=== PATIENT | female | born 1985 | race Caucasian/White ===

== ENCOUNTER → 2016-08-29 | Outpatient (CLI) | payer OTHER ==
[2016-08-29 17:08] LABS: Basophils % (A) 1 %; CH 30.3; CHCM 33.4; Eosinophils # (A) 0.1 k/uL (0-0.7); Eosinophils % (A) 1 %; HCT 40.1 % (34.0-46.0); HDW 2.44; Luc # (Auto) 0.17; Luc % (Auto) 3; Lymphocytes % (A) 34 %; MCH 29.6 pg (25.0-35.0); MCHC 32.5 g/dL (31.0-37.0); MCV 91.1 fL (80.0-100.0); Mean Platelet Volume 6.8; Monocytes # (A) 0.3 k/uL (0-1.0); Monocytes % (A) 5 %; Neutrophils # (A) 3.3 k/uL (1.3-7.7); Neutrophils % (A) 57 %; RDW 12.2 % (11.5-15.5); WBC 5.9 k/uL (3.8-10.6)
== END | disposition home or self-care (01) ==
LOC: LABPAT 16:30
PROVIDERS: ATTEND Obstetrics & Gynecology
DX: Z01.812 Encounter for preprocedural laboratory examination (principal); D06.9 Carcinoma in situ of cervix, unspecified
CPT/HCPCS: 85025

== ENCOUNTER 2016-09-07 13:26 | Emergency (ER) | payer OTHER ==
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
[2016-09-07 14:32] VITALS: BP 132/89; PULSE 76; RESP 16; TEMP 97.8
== END 2016-09-07 14:30 | disposition home or self-care (01) ==
LOC: EC 13:26
DX: T24.212A Burn of second degree of left thigh, initial encounter (principal); T24.111A Burn of first degree of right thigh, initial encounter; T31.0 Burns involving less than 10% of body surface; G40.909 Epilepsy, unspecified, not intractable, without status epilepticus; F17.200 Nicotine dependence, unspecified, uncomplicated; Z86.14 Personal history of Methicillin resistant Staphylococcus aureus infection; Z79.899 Other long term (current) drug therapy; X11.8XXA Contact with other hot tap-water, initial encounter; Y93.89 Activity, other specified; Y92.019 Unspecified place in single-family (private) house as the place of occurrence of the external cause
CPT/HCPCS: 99283

== ENCOUNTER 2016-09-12 07:35 | Day surgery (SDC) | payer OTHER ==
[2016-09-07 09:17] VITALS: BMI 28.3
[~2016-09-12 07:35] MED LIST: LACTATED RINGERS 1,000 ML IV SCH
[2016-09-12 07:50] VITALS: TEMP 97.3
[2016-09-12] MEDS ORDERED: LIDOCAINE 1% 20 ML VIAL (10MG/ML) FOR IV START INTRADERMA ONE (08:33)
[2016-09-12] MEDS ORDERED: fentaNYL (PF) 50 MCG/ML 2 ML AMP ONE (08:39)
[2016-09-12] MEDS ORDERED: MIDAZOLAM 2 MG/2 ML VIAL ONE (08:39)
[2016-09-12] MEDS ORDERED: TRIAMCINOLONE ACETONIDE 40 MG/ML 1 ML VIAL ONE (08:39)
[2016-09-12] MEDS ORDERED: IOHEXOL 180 MG/ML 1 ML ML ONE (08:39)
--- NOTE | 2016-09-12 09:02 | P.PCN ---
Date of Procedure: 09/12/16 Procedure(s) Performed: PREOPERATIVE DIAGNOSIS: 1- Lumbar herniated Disc Diseases at L5-S1 2-Lumbar radiculopathy. POSTOPERATIVE DIAGNOSIS: Same as preoperative diagnoses. PROCEDURE 1. Lumbar epidural steroid injection under fluoroscopic guidance at the L5-S1 level. 2. Lumbar epidurogram. ANESTHESIA: Local with 1% lidocaine 3 ml and IV sedation with Versed 2 mg , and fentanyle 100 Mcg EBL: Minimal PROCEDURE INDICATION: The patient with low back pain and radiculitis symptoms unresponsive to conservative treatment. Fluoroscopy was used to optimize visualization of the needle placement and to maximize safety. PROCEDURE DESCRIPTION / TECHNIQUE: The patient was seen and identified in the preoperative area. Risks, benefits , complications including but not limited to infections ,bleeding ,allergic reaction to the medications ,nerve damage and not complete pain releife , and alternatives were discussed with the patient. The patient agreed to proceed with the procedure and signed the consent. IV was started, and vital signs were stable. Patient was taken to the OR and time out was completed. The patient was placed in the prone position on procedure table and a pillow was placed under the abdomen to reduce lumbar lordosis. The lumbosacral area was prepped and draped in the usual sterile fashion.ere closely monitored during the procedure. Conscious sedation was used during the procedure to decrease patients anxiety. Vital signs was monitered during the entire procedure. Using anterior-posterior fluoroscopy, the L5-S1 interlaminar space was identified and the skin over this site was marked and then infiltrated with 1% lidocaine subcutaneously. Subsequently, a 20-gauge Tuohy epidural needle was inserted and advanced toward the epidural space using the ``Loss of resistance technique and guided by AP and lateral fluoroscopy. The correct needle position in the epidural space was verified with the injection of 2 mL of the water soluble contrast dye Omnipaque 180 contrast and observing an excellent epidurogram with the epidural spread of the dye, after negative aspiration for blood and CSF and in the absence of paresthesias. Again after negative aspiration, a 6 ml mixture containing 80 mg of Kenalog and 2 ml of preservative free Normal Saline, and 2 ml of preservative free lidocaine 1% solution was injected and a washout of epidurogram was seen. Needle was withdrawn intact, skin was cleansed, and bandages were applied. COMPLICATIONS: None DISPOSITION / PLANS: The patient was placed in a supine position and transferred to the recovery area in a stable condition for observation. There was no evidence of lower extremity motor or sensory deficit after the procedure. Patient was discharged from the recovery room after meeting discharge criteria. Home discharge instructions were given to the patient by the staff. The patient was reexamined prior to discharge. The patient will schedule a follow up in the clinic in 2-4 weeks.
[2016-09-12] MEDS ORDERED: IV FLUID CONTINUATION 450 ML IV ONE (09:09)
[2016-09-12 09:18] VITALS: RESP 18
[2016-09-12 09:30] VITALS: BP 125/84; PULSE 76
== END 2016-09-12 09:35 | disposition home or self-care (01) ==
LOC: ORPAIN 07:35
PROVIDERS: ATTEND Specialist
DX: M51.17 Intervertebral disc disorders with radiculopathy, lumbosacral region (principal)
CPT/HCPCS: 62323; 81025

== ENCOUNTER → 2016-11-22 | Outpatient (CLI) | payer OTHER ==
[2016-11-22 12:53] LABS: Basophils % (A) 0 %; CH 30.3; CHCM 33.7; Eosinophils # (A) 0.1 k/uL (0-0.7); Eosinophils % (A) 2 %; HCT 40.4 % (34.0-46.0); HDW 2.37; HGB 13.8 gm/dL (11.4-16.0); Luc # (Auto) 0.12; Luc % (Auto) 2; Lymphocytes # (A) 1.5 k/uL (1.0-4.8); Lymphocytes % (A) 29 %; MCHC 34.3 g/dL (31.0-37.0); MCV 90.4 fL (80.0-100.0); Mean Platelet Volume 6.7; Monocytes # (A) 0.4 k/uL (0-1.0); Monocytes % (A) 7 %; Neutrophils # (A) 3.1 k/uL (1.3-7.7); Neutrophils % (A) 59 %; RBC 4.47 m/uL (3.80-5.40); RDW 12.6 % (11.5-15.5); WBC 5.2 k/uL (3.8-10.6); WBC (Perox) 5.05
== END | disposition home or self-care (01) ==
LOC: LABPAT 12:29
PROVIDERS: ATTEND Obstetrics & Gynecology
DX: Z01.812 Encounter for preprocedural laboratory examination (principal)
CPT/HCPCS: 85025

== ENCOUNTER 2016-11-27 08:11 | Day surgery (SDC) | payer OTHER ==
--- NOTE | 2016-09-12 09:47 | FL ---
EXAMINATION TYPE: FL guided pain mgmt statistic DATE OF EXAM: 09/12/2016 9:05 AM FLUOROSCOPY Fluoroscopy time of 3 seconds was used during lumbar epidural injection. 1 image/s document/s the procedure.
--- NOTE | 2016-11-23 17:16 | HP ---
DATE OF ADMISSION: 11/27/2016 HISTORY: This is a 31-year-old 2 para 1-0-1-1 woman who was found on colposcopic biopsies of the cervix to have high-grade cervical intraepithelial neoplasia, ADRIANNA 3. She is scheduled to undergo cervical cold knife cone biopsy for further diagnosis and treatment. ALLERGIES: NO KNOWN DRUG ALLERGIES. MEDICATIONS: 1. Oral contraceptive pills daily. 2. Neurontin 200 mg t.i.d. 3. Motrin p.r.n. PAST MEDICAL HISTORY: Abnormal Pap smears. PAST SURGICAL HISTORY: Tonsillectomy. 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 SOCIAL HISTORY: She smokes one pack of cigarettes per day. Denies alcohol and drug use. She is single. FAMILY HISTORY: Noncontributory. REVIEW OF SYSTEMS: Negative for recent weight gain or weight loss, fevers, chills, nausea, vomiting, constipation, diarrhea, abnormal vaginal bleeding, pelvic pain, chest pain or shortness of breath. PHYSICAL EXAMINATION: Blood pressure 102/74. Height 5 feet 4 inches. Weight 176 pounds. In general this is a pleasant young female in no apparent distress. HEENT exam is unremarkable. The lungs are clear. The heart has a regular rate. The abdomen is soft and nontender. On pelvic examination she has normal female external genitalia without lesions or irritation. On speculum examination, the cervix is multiparous in appearance. Under colposcopic evaluation there are acetowhite changes, punctations and abnormal vascularity noted. On bimanual examination, the uterus is not enlarged. It is nontender. There are no palpable adnexal abnormalities. ASSESSMENT: This is a 31-year-old 2, para 1 woman with high-grade cervical dysplasia, ADRIANNA 3, who is scheduled to undergo cervical cold knife cone biopsy on 11/27/16. This procedure, its anticipated risks and benefits have been reviewed with the patient. She has previously scheduled and cancelled this surgery in the past and was counseled prior to the most recent rescheduled surgery. Risks that have been reviewed with her in the past include but are not limited to bleeding, transfusion, infection, injury to bowel, bladder or the uterus. There is possible risk of recurrence or incomplete resection of the dysplasia. The patient understands these risks. Consent was given in the past and she agrees to proceed. She is scheduled on 11/27/16.
[2016-11-24 08:24] VITALS: BMI 28.3
[~2016-11-27 08:11] MED LIST changes: -LACTATED RINGERS 1,000 ML IV SCH; +Pre Op ABX Message 1 EACH MISC MISCELLANE ONE
[2016-11-27] MEDS ORDERED: LACTATED RINGERS 1,000 ML IV SCH ×2 (09:56)
[2016-11-27] MEDS ORDERED: DEXAMETHASONE SOD PHOSPHATE 10 MG/ML 1 ML VIAL IV ONE ×2 (09:56)
[2016-11-27] MEDS ORDERED: MIDAZOLAM 2 MG/2 ML VIAL IV PRN ×2 (09:56)
[2016-11-27] MEDS ORDERED: ONDANSETRON 4 MG/2 ML VIAL IVP ONE ×2 (09:56)
[2016-11-27] MEDS ORDERED: HYDROmorphone 1 MG/ML 1 ML SYRINGE IVP PRN ×2 (09:56)
[2016-11-27] MEDS ORDERED: LIDOCAINE 1% 20 ML VIAL (10MG/ML) FOR IV START INTRADERMA ONE (10:26)
[2016-11-27] MEDS ORDERED: MIDAZOLAM 2 MG/2 ML VIAL ONE (10:48)
[2016-11-27] MEDS ORDERED: fentaNYL (PF) 50 MCG/ML 2 ML AMP ONE (10:48)
[2016-11-27] MEDS ORDERED: PROPOFOL 10 MG/ML 20 ML VIAL IV ONE (10:48)
[2016-11-27] MEDS ORDERED: KETOROLAC 30 MG/ML 1 ML VIAL ONE (10:48)
[2016-11-27] MEDS ORDERED: LIDOCAINE 1% INJ 10MG/ML (20 ML MDV) ONE (10:48)
[2016-11-27] MEDS ORDERED: GLYCOPYRROLATE 0.2 MG/ML 2 ML VIAL ONE (10:48)
[2016-11-27] MEDS ORDERED: LIDOCAINE 1%-EPI 1:100,000 20 ML VIAL SUBMUCOSAL ONE ×2 (11:02)
[2016-11-27] MEDS ORDERED: IODINE/POTASS IOD (LUGOLS) BTL TOPICAL ONE (11:03)
[2016-11-27] MEDS ORDERED: FERRIC SUBSULFATE (MONSELS) JAR TOPICAL ONE (11:11)
--- NOTE | 2016-11-27 11:20 | P.OP ---
Date of Procedure: 11/27/16 Preoperative Diagnosis: ADRIANNA 3 Postoperative Diagnosis: ADRIANNA 3 Procedure(s) Performed: Cervical cold knife cone biopsy Anesthesia: MAC Surgeon: Fallon Webster Estimated Blood Loss (ml): 5 IV fluids (ml): 400 Urine output (ml): 50 Pathology: other (Cervical biopsy) Condition: stable Disposition: PACU Operative Findings: Grossly normal-appearing cervix Description of Procedure: After the patient was met preoperatively and all questions were answered, she was taken to the operating room where anesthetic was administered without incident. She was then positioned, prepped and draped in the dorsal lithotomy position. Appropriate timeout procedures were undertaken. The bladder was drained for approximately 50 mL of clear urine. Speculum was placed in the vagina. 0 Vicryl suture was utilized to place sutures on at the cervical vaginal angle at the 3 and 9 o'clock position. These were tagged. Lugol solution was applied to the cervix to delineate the transformation zone. The cervix was grasped anteriorly with a single-tooth tenaculum. 11 blade scalpel was utilized to circumferentially excise the cervix immediately external to the transformation zone. This was angled in to create the cone shaped biopsy. This was removed and a single specimen. Bovie electrocautery was utilized to cauterize the biopsy edges and base. Monsel solution was then applied to the base. The cervical biopsy site was observed and was noted to be hemostatic. Stay sutures were removed. Speculum was removed from the vagina. The patient was awoken from anesthetic without incident and transported to recovery area in stable condition. All counts reported to me as correct at the end of the procedure.
[2016-11-27 11:39] VITALS: TEMP 97.1
[2016-11-27 11:41] VITALS: RESP 16
[2016-11-27 12:31] VITALS: BP 110/73; PULSE 73
== END 2016-11-27 12:31 | disposition home or self-care (01) ==
LOC: OR 08:11
PROVIDERS: ATTEND Obstetrics & Gynecology
DX: D06.7 Carcinoma in situ of other parts of cervix (principal); F17.210 Nicotine dependence, cigarettes, uncomplicated; Z79.3 Long term (current) use of hormonal contraceptives; Z79.899 Other long term (current) drug therapy
CPT/HCPCS: 57520; 81025; 88307; J2250; J1100; J2405; J2001; J3010; J1885; J2704

== ENCOUNTER 2017-01-12 19:55 | Emergency (ER) | payer OTHER ==
[2017-01-12 20:30] VITALS: RESP 18
--- NOTE | 2017-01-12 21:13 | ED ---
Syncope HPI - General Chief Complaint: Syncope Stated Complaint: Finger pain/ with syncope Time Seen by Provider: 01/12/17 21:02 Source: patient, RN notes reviewed, old records reviewed Mode of arrival: ambulatory Limitations: no limitations - History of Present Illness Initial Comments: This is a 31-year-old female presents emergency Department with chief complaint of left middle finger pain. Patient reports that she came home from work and discovered that her dog tore up all of her couch cushion pillows. Patient reports that she became angry with the dog and tried to smack the dog on the nose. Patient reports that her finger got caught on the dog's collar and it twisted. Patient reports that she does have flexion and extension over her hand. She's noticed some bruising over the distal part of the middle finger. Patient reports that she is right-handed. Patient states that after this all occurred she started to become very flustered and she noticed that her heart raced increased. Patient reports that at that time she felt somewhat lightheaded and had a sit down. Patient reports that she laid on the couch for approximately 5 minutes. Patient states that she felt as if she passed out. Patient reports that she does not feel lightheaded or dizzy at this time. Patient mainly complains of the finger pain. Patient states that she does have a history of seizure disorder which prompted her to come in to the emergency department due to the lightheaded episode. Patient states that she has no changes in vision, headache, dizziness, chest pain, shortness of breath, rapid heartbeat, nausea or vomiting. - Related Data Home Medications Medication Instructions Recorded Confirmed Biotin 5 mg PO DAILY 01/12/17 01/12/17 Allergies Allergy/AdvReac Type Severity Reaction Status Date / Time No Known Allergies Allergy Verified 01/12/17 20:58 Review of Systems ROS Statement: Those systems with pertinent positive or pertinent negative responses have been documented in the HPI. ROS Other: All systems not noted in ROS Statement are negative. Past Medical History Past Medical History: Seizure Disorder Additional Past Medical History / Comment(s): Last Seizure 6 yrs ago, DDD, fibromyalgia, Back pain History of Any Multi-Drug Resistant Organisms: MRSA Date of last positivie culture/infection: 2013 MDRO Source:: cheek and abdomen abscess Past Surgical History: Tonsillectomy Additional Past Surgical History / Comment(s): PAIN CLINIC PROCEDURES. Past Anesthesia/Blood Transfusion Reactions: No Reported Reaction Past Psychological History: Anxiety, Depression Additional Psychological History / Comment(s): yrs ago Smoking Status: Current every day smoker Past Alcohol Use History: None Reported Additional Past Alcohol Use History / Comment(s): started smoking at age 17 Past Drug Use History: None Reported Additional Drug Use History / Comment(s): uses marijuana daily - Past Family History Mother Family Medical History: Deep Vein Thrombosis (DVT) Father History Unknown: Yes General Exam - General Exam Comments Initial Comments: Pleasant 31-year-old female. No acute distress. Limitations: no limitations General appearance: alert, in no apparent distress Head exam: Present: atraumatic, normocephalic, normal inspection Eye exam: Present: normal appearance, PERRL, EOMI. Absent: scleral icterus, conjunctival injection, periorbital swelling ENT exam: Present: normal exam, mucous membranes moist Neck exam: Present: normal inspection. Absent: tenderness, meningismus, lymphadenopathy Respiratory exam: Present: normal lung sounds bilaterally. Absent: respiratory distress, wheezes, rales, rhonchi, stridor Cardiovascular Exam: Present: regular rate, normal rhythm, normal heart sounds. Absent: systolic murmur, diastolic murmur, rubs, gallop, clicks GI/Abdominal exam: Present: soft, normal bowel sounds. Absent: distended, tenderness, guarding, rebound, rigid Extremities exam: Present: normal inspection, full ROM, normal capillary refill , other (Left middle finger bruising.). Absent: tenderness, pedal edema, joint swelling, calf tenderness Back exam: Present: normal inspection Neurological exam: Present: alert, oriented X3, CN II-XII intact Expanded Patient oriented to: Present: person, place, time Speech: Present: fluid speech Cranial nerves: EOM's Intact: Normal, Gag Reflex: Normal, Tongue Deviation: Normal Cerebellar function: Finger to Nose: Normal Sensory exam: Upper Extremity Light Touch: Normal, Lower Extremity Light Touch: Normal Motor strength exam: RUE: 5, LUE: 5, RLE: 5, LLE: 5 Eye Response: (4) open spontaneously Motor Response: (6) obeys commands Verbal Response: (5) oriented [place] Total: 15 Psychiatric exam: Present: normal affect, normal mood Skin exam: Present: warm, dry, intact, normal color. Absent: rash Course Vital Signs 06/09/17 06/09/17 06/09/17 20:25 22:02 22:42 Temperature 98.7 F 98.5 F Pulse Rate 70 71 Pulse Rate [ 97 Sitting] Pulse Rate [ 93 Standing] Pulse Rate [ 87 Supine] Respiratory 18 18 Rate Blood Pressure 117/68 126/76 Blood Pressure 124/79 [Sitting] Blood Pressure 117/81 [Standing] Blood Pressure 119/72 [Supine] O2 Sat by Pulse 99 98 Oximetry Medical Decision Making - Medical Decision Making his is a 31-year-old female presents emergency Department with chief complaint of left middle finger pain. Patient reports that she came home from work and discovered that her dog tore up all of her couch cushion pillows. Patient reports that she became angry with the dog and tried to smack the dog on the nose. Patient reports that her finger got caught on the dog's collar and it twisted. Patient reports that she does have flexion and extension over her hand. She's noticed some bruising over the distal part of the middle finger. Patient reports that she is right-handed. Patient states that after this all occurred she started to become very flustered and she noticed that her heart raced increased. Patient reports that at that time she felt somewhat lightheaded and had a sit down. Patient reports that she laid on the couch for approximately 5 minutes. Patient states that she felt as if she passed out. Patient reports that she does not feel lightheaded or dizzy at this time. Patient mainly complains of the finger pain. Patient does have some mild bruising over the distal middle finger. Patient is neurologically intact. Patient states that she is stressed at this time he needs to get her homework done. Discussed he can do a workup for syncopal episode. Patient did receive EKG which is negative for any acute process. Patient reports that she needs to leave this is possible to finishing her homework. Patient reports that she is not lightheaded or dizzy at this time. Discussed the findings of the x-ray showed no fracture. Patient was given a finger splint for finger sprain. Discussed applying ice over and taking Motrin Tylenol for pain. Discussed that she needs to rest. Patient agrees. Patient will be given one day off work due to the amount months and months that she has been under. Patient agrees to treatment plan will comply. Return parameters were discussed. 01/12/17 22:06 EKG shows normal sinus rhythm. Low voltage QRS. Incomplete right bundle branch block. Rate 67 bpm. ID interval 152 ms. QRS duration 108 ms. QT/QTc is 46/429 ms. No evidence of ST elevation or T-wave inversion. - Radiology Data Radiology results: report reviewed Left hand x-rays negative for any acute process. Disposition Clinical Impression: Sprain of left middle finger, History of syncope Disposition: HOME SELF-CARE Condition: Good Instructions: Syncope (ED), Finger Sprain (ED) Additional Instructions: Patient advised to rest, increase fluids. Follow-up with primary care provider. Wear the finger splint the next few days. Return to the emergency department if any alarming signs or symptoms occur. Referrals: Kuldeep Rachel Jr, [Primary Care Provider] - 1-2 days Time of Disposition: 22:24
--- NOTE | 2017-01-12 21:36 | XR ---
EXAMINATION TYPE: XR hand complete LT DATE OF EXAM: 01/12/2017 COMPARISON: NONE HISTORY: Pain TECHNIQUE: 3 views FINDINGS: I see no fracture nor dislocation. Middle finger is intact. IMPRESSION: Normal left hand
[2017-01-12 22:46] VITALS: BP 126/76; PULSE 71; TEMP 98.5
== END 2017-01-12 22:46 | disposition home or self-care (01) ==
LOC: SUPCPDRO 19:55 → EC 19:55
DX: S63.613A Unspecified sprain of left middle finger, initial encounter (principal); R55 Syncope and collapse; I45.10 Unspecified right bundle-branch block; F17.200 Nicotine dependence, unspecified, uncomplicated; Z79.899 Other long term (current) drug therapy; X58.XXXA Exposure to other specified factors, initial encounter
CPT/HCPCS: 93005; 99284

== ENCOUNTER 2019-09-29 17:09 | Outpatient (CLI) | payer OTHER ==
[2019-09-29 18:55] VITALS: BP 132/83; PULSE 89; RESP 16; TEMP 98.1
--- NOTE | 2019-10-05 11:15 | P.MSEPDOC ---
Presenting Problems - Arrival Data Date of Arrival on Unit: 09/29/19 Time of Arrival on Unit: 17:10 Mode of Transport: Ambulatory - Complaint OB-Reason for Admission/Chief Complaint: Possible Onset of Labor Medical History - Information : 3 Para: 1 Number of Living Children: 1 - Gestational Age Gestational Age by KAYLA (wks/days): 37 Weeks and 6 Days Review of Systems - Review of Systems Constitutional: No problems Breast: No problems ENT: No problems Cardiovascular: No problems Respiratory: No problems Gastrointestinal: No problems Genitourinary: No problems Musculoskeletal: No problems Neurological: No problems Skin: No problems Vital Signs - Temperature Temperature: 98.1 F Temperature Source: Temporal Artery Scan - Pulse Right Sitting Brachial Pulse Rate: 89 Pulse Assessment Method: Automatic Cuff - Respirations Respiratory Rate: 16 Oxygen Delivery Method: Room Air O2 Sat by Pulse Oximetry: 99 - Blood Pressure Right Arm Sitting Blood Pressure: 132/83 Blood Pressure Mean: 99 Blood Pressure Source: Automatic Cuff Medical Screen Scoring (Pre) - Cervical Exam Dilation: 1-3 cm = 1 Effacement: More than 50% = 2 Membranes: Intact - Uterine Contractions Frequency: > 5 minutes apart = 1 Duration: > 40 seconds = 2 Intensity: N/A - Maternal Vital Signs Maternal Temperature: N/A Maternal Blood Pressure: N/A Signs of Preeclampsia: N/A Maternal Respirations: N/A - Maternal Trauma Maternal Trauma: N/A - Assessment - Baby A Baseline FHR: 130 Heart Rate - NICHD Category: Category I (Normal) = 0 NST: Reactive Position: N/A Station: N/A - Total Score - Baby A Total Score - Baby A: 6 - Total Score - Baby B Total Score - Baby B: 6 - Total Score - Baby C Total Score - Baby C: 6 - Level of Risk - Baby A Level of Risk - Baby A: Medium (6-9) - Level of Risk - Baby B Level of Risk - Baby B: Medium (6-9) - Level of Risk - Baby C Level of Risk - Baby C: Medium (6-9) Physician Notification (Pre) - Physician Notified Physician Notified Date: 09/29/19 Physician Notified Time: 18:30 New Order Received: Yes (discharge with instructions) Disposition - Disposition OB Disposition: Discharge to home Discharge Date: 09/29/19 Discharge Time: 18:40 I agree with the RN Medical Screening Exam: Yes Risk & Benefit of care provided described in d/c instruction: Yes Diagnosis: FALSE LABOR AT OR AFTER 37 COMPLETED WEEKS OF GESTATION
== END 2019-09-29 18:40 | disposition home or self-care (01) ==
LOC: FBPOP 17:09
PROVIDERS: ATTEND Obstetrics & Gynecology
DX: O47.1 False labor at or after 37 completed weeks of gestation (principal); Z3A.37 37 weeks gestation of pregnancy
CPT/HCPCS: 59025; 84112; G0463; 99213

== ENCOUNTER 2019-10-02 10:34 | Outpatient (CLI) | payer OTHER ==
[2019-10-02 13:31] VITALS: BP 122/83; PULSE 96; RESP 16; TEMP 97.8
== END 2019-10-02 13:20 | disposition home or self-care (01) ==
LOC: FBPOP 10:34
PROVIDERS: ATTEND Obstetrics & Gynecology
DX: O47.1 False labor at or after 37 completed weeks of gestation (principal); Z3A.38 38 weeks gestation of pregnancy
CPT/HCPCS: 59025; 84112; G0463; 99213

== ENCOUNTER 2019-10-02 23:32 | Inpatient (IN) | payer MEDICARE, OTHER ==
[2019-10-03] MEDS ORDERED: METHYLERGONOVINE 0.2 MG/ML 1 ML AMP IM PRN (00:05)
[2019-10-03] MEDS ORDERED: OXYTOCIN 10 UNIT/ML 1 ML VIAL IM PRN (00:05)
[2019-10-03] MEDS ORDERED: LIDOCAINE 0.5% (PF) 5 MG/ML (50 ML SDV) SQ PRN (00:05)
[2019-10-03] MEDS ORDERED: TERBUTALINE 1 MG/ML VIAL SQ PRN (00:05)
[2019-10-03] MEDS ORDERED: CARBOPROST TROMETHAMINE 250 MCG/ML 1 ML AMP IM PRN (00:05)
[2019-10-03] MEDS: LACTATED RINGERS 1,000 ML IV SCH ×2 (00:25→01:29)
[2019-10-03 00:37] LABS: Basophils % (A) 0 %; Eosinophils # (A) 0.2 k/uL (0-0.7); Eosinophils % (A) 1 %; HGB 12.4 gm/dL (11.4-16.0); Lymphocytes # (A) 2.3 k/uL (1.0-4.8); Lymphocytes % (A) 13 %; MCH 30.7 pg (25.0-35.0); MCHC 33.5 g/dL (31.0-37.0); MCV 91.7 fL (80.0-100.0); Mean Platelet Volume 8.4; Monocytes # (A) 1.1 k/uL (0-1.0); Monocytes % (A) 6 %; Neutrophils # (A) 13.8 k/uL (1.3-7.7); Neutrophils % (A) 78 %; Platelet Count 347 k/uL (150-450); RBC 4.03 m/uL (3.80-5.40); WBC 17.7 k/uL (3.8-10.6)
[2019-10-03] MEDS ORDERED: SODIUM CHLORIDE 0.9% 100 ML BAG ONE (00:57)
[2019-10-03] MEDS ORDERED: ROPIVACAINE 5MG/ML 20ML VIAL ONE (00:57)
[2019-10-03] MEDS ORDERED: fentaNYL (PF) 50 MCG/ML 5 ML AMP ONE (00:57)
--- NOTE | 2019-10-03 06:09 | P.HPOB ---
History of Present Illness H&P Date: 10/03/19 Chief Complaint: Labor at 38+ weeks gestation This is a 33-year-old 3 para 08/06/2000 woman who has an estimated due date of 10/14/2019 based on LMP consistent with first trimester ultrasound. She presented at 38+ weeks gestation with 24 hours of increasing contractions and had cervical change upon admission to labor and delivery. She also had spontaneous rupture of clear fluid while in triage. Her has been uncomplicated however she has been monitored with serial ultrasound and testing for history of a 25 week demise in 2002. She also has a history of a cervical cold knife cone biopsy in 2016 and had monitoring of cervical length. On initial evaluation in labor and delivery triage she was 3+ centimeters dilated, 100% effaced and had spontaneous rupture of clear fluid. She is pily every 2-4 minutes. Laboratory data: Blood type A+, antibody screen negative, rubella immune, VDRL nonreactive, hep Kelsey surface antigen negative, HIV negative, gonorrhea and clinic cultures negative, glucose tolerance testing negative, group B strep cultures negative Obstetrical history 25 week IUFD and delivery 2002, 41 week spontaneous vaginal delivery of 8 lbs. 12 oz. male 2006 Review of Systems All systems: negative Past Medical History Past Medical History: Seizure Disorder Additional Past Medical History / Comment(s): Last Seizure 6 yrs ago, DDD, fibromyalgia, Back pain History of Any Multi-Drug Resistant Organisms: None Reported, MRSA Date of last positivie culture/infection: 2013 MDRO Source:: cheek and abdomen abscess Past Surgical History: Tonsillectomy Additional Past Surgical History / Comment(s): PAIN CLINIC PROCEDURES. Past Anesthesia/Blood Transfusion Reactions: No Reported Reaction Past Psychological History: Anxiety, Depression Additional Psychological History / Comment(s): yrs ago Smoking Status: Current every day smoker Past Alcohol Use History: None Reported Additional Past Alcohol Use History / Comment(s): started smoking at age 17 Past Drug Use History: None Reported Additional Drug Use History / Comment(s): uses marijuana daily - Past Family History Mother Family Medical History: Deep Vein Thrombosis (DVT) Father History Unknown: Yes Family Medical History: No Reported History Medications and Allergies Home Medications Medication Instructions Recorded Confirmed Type Pnv,Calcium 72/Iron/Folic Acid 1 tab PO DAILY 09/29/19 10/02/19 History [ Plus Tablet] Allergies Allergy/AdvReac Type Severity Reaction Status Date / Time No Known Allergies Allergy Verified 10/02/19 23:54 Exam Vital Signs Temp Pulse Resp BP Pulse Ox 10/03/19 00:25 98.7 F 85 18 111/73 10/02/19 23:58 97.1 F L 93 18 125/69 97 Intake and Output 10/02/19 10/02/19 10/03/19 14:59 22:59 06:59 Other: # Voids 1 Weight 84.822 kg Upon my initial evaluation on labor and delivery the patient has been resting comfortably with an epidural anesthetic. On exam she has a large bulging fore bag of membranes which is ruptured and copious clear fluid is noted. Cervix is 9+ centimeters dilated, 100% effaced and the vertex in the +1 station. heart tones are category 1 and she is pily every 3-4 minutes. Results Result Diagrams: 10/03/19 00:15 Abnormal Lab Results - Last 24 Hours (Table) 10/03/19 Range/Units 00:15 WBC 17.7 H (3.8-10.6) k/uL Neutrophils # 13.8 H (1.3-7.7) k/uL Monocytes # 1.1 H (0-1.0) k/uL Assessment and Plan (1) Spontaneous onset of labor Current Visit: Yes Status: Acute Code(s): [id number] - SNOMED Code(s): 85304638 (2) Spontaneous rupture of membranes Current Visit: Yes Status: Acute Code(s): ENN9109 - SNOMED Code(s): 526322965 Plan: 33-year-old 3 para 08/06/2000 woman with spontaneous active labor and rupture of membranes. status currently reassuring by external monitoring. Anticipate normal spontaneous vaginal delivery. Group B strep negative and Rh+.
[2019-10-03] MEDS ORDERED: ZOLPIDEM 5 MG TAB PO PRN (06:12)
[2019-10-03] MEDS ORDERED: diphenhydrAMINE 25 MG CAP PO PRN (06:12)
[2019-10-03] MEDS ORDERED: HYDROCORTISONE 2.5% RECTAL CREAM 30 GM TUBE RECTAL PRN (06:12)
[2019-10-03] MEDS ORDERED: LANOLIN CREAM 5 GM TUBE TOPICAL PRN (06:12)
[2019-10-03] MEDS ORDERED: ACETAMINOPHEN TAB 325 MG TAB PO PRN (06:12)
[2019-10-03] MEDS ORDERED: BENZOCAINE/MENTHOL SPRAY 1 GM/SPRAY AEROSOL TOPICAL PRN (06:12)
[2019-10-03] MEDS ORDERED: SIMETHICONE 80 MG CHEWABLE PO PRN (06:12)
[2019-10-03] MEDS ORDERED: diphenhydrAMINE 50 MG/ML 1 ML VIAL IVP PRN ×2 (06:12)
[2019-10-03] MEDS ORDERED: WITCH HAZEL 1 EACH MED..PAD TOPICAL PRN (06:12)
[2019-10-03] MEDS ORDERED: diphenhydrAMINE 50 MG CAP PO PRN (06:12)
--- NOTE | 2019-10-03 06:12 | P.PROBDLV ---
Vaginal Delivery Note - . Vaginal Delivery Note: Findings: Female in the vertex left occiput anterior position with Apgars of 9 at 1 minute and 9 at 5 minutes weighing 6 lbs. 9 oz., 2975 g. Intact, three-vessel cord placenta. Minimal EBL. Delivery summary: This is a 33-year-old 3 para 08/06/2000 woman who was admitted at 38+ weeks gestation in spontaneous active labor with rupture of membranes. She had an uncomplicated first stage of labor and did receive an epidural anesthetic. After approximately 7 hour first stage of labor she did reach complete cervical dilation with the urge to push. She pushed very effectively and with was repositioned, prepped and draped in the modified Gina position. With additional maternal effort the head crowned from the left occiput anterior position. The anterior followed by the posterior shoulders were delivered rapidly and the rest of the infant was delivered onto the field. The nose and mouth were bulb suctioned and the infant was placed on the maternal abdomen. The cord was clamped and cut after approximately 2-3 minutes to allow for cord pulsation to decrease. An intact, three-vessel cord placenta was then expressed after a rapid third stage of labor. The perineum on, cervix and vagina were inspected and small periurethral abrasion was noted that was not actively bleeding. The uterus was massaged and was noted to be firm at the level of the umbilicus. Pitocin was administered third stage of labor. EBL was minimal. Both mother and were doing well post delivery in the room.
[2019-10-03] MEDS ORDERED: OXYTOCIN 20 UNITS/1000 ML NS 1,000 ML IV SCH (06:15)
[2019-10-03] MEDS ORDERED: ROPIVACAINE 100 MG, fentaNYL (PF) 200 MCG in SODIUM CHLORIDE 0.9% 76 ML EPIDURAL ONE (06:51)
[2019-10-03] MEDS: SENNOSIDES-DOCUSATE SODIUM 1 EACH TAB PO SCH ×2 (08:40→19:49)
[2019-10-03] MEDS: IBUPROFEN 600 MG TAB PO PRN ×2 (10:16→18:04)
[2019-10-04 06:31] LABS: Basophils % (A) 0 %; Eosinophils # (A) 0.3 k/uL (0-0.7); Eosinophils % (A) 2 %; HCT 30.3 % (34.0-46.0); HGB 10.1 gm/dL (11.4-16.0); Lymphocytes # (A) 2.9 k/uL (1.0-4.8); Lymphocytes % (A) 23 %; MCH 30.6 pg (25.0-35.0); MCHC 33.2 g/dL (31.0-37.0); Mean Platelet Volume 8.5; Monocytes # (A) 0.6 k/uL (0-1.0); Monocytes % (A) 5 %; Neutrophils # (A) 8.3 k/uL (1.3-7.7); Neutrophils % (A) 67 %; Platelet Count 286 k/uL (150-450); RBC 3.29 m/uL (3.80-5.40); RDW 12.8 % (11.5-15.5); WBC 12.4 k/uL (3.8-10.6)
[2019-10-04 08:54] VITALS: BP 115/69; PULSE 74; RESP 17; TEMP 98
[2019-10-04] MEDS: SENNOSIDES-DOCUSATE SODIUM 1 EACH TAB PO SCH (08:58)
--- NOTE | 2019-10-04 11:57 | P.DS ---
Providers Date of admission: 10/02/19 23:50 Expected date of discharge: 10/04/19 Attending physician: Fallon Webster Primary care physician: Fallon Webster - Discharge Diagnosis(es) (1) Normal spontaneous vaginal delivery Current Visit: Yes Status: Acute Hospital Course: The patient is a 33-year-old 3 [id number] admitted at 38+ weeks by good dating parameters. She is admitted with increasing contractions in early labor and evidence of spontaneous rupture of membranes for clear fluid. Her was uncomplicated aside from a history of having undergone cold knife conization for which she had close cervical length monitoring as well as a history of a 25 week intrauterine demise. On labor and delivery, she had an epidural catheter placed at the onset of the active phase of labor. She then made steady progress through the active phase of labor to complete and pushed to a normal spontaneous vaginal delivery of a viable 6 lbs. 9 oz. baby girl with Apgars of 9 at 1 minute and 9 at 5 minutes. Her course was unremarkable vital signs remaining stable and her temperature was afebrile throughout. She was deemed stable for discharge on day #1 and was discharged home to follow-up in 6 weeks' time routinely. Discharge instructions included calling for any significantly increased bleeding or foul-smelling lochia, significantly increased fever abdominal pain, perineal complaints, breast complaints, or anything else that concerned her. She was additionally instructed to have nothing in the vagina for at least 6 weeks time to include intercourse. She understood her instructions and agrees to follow up as noted above. Discharge medications included continued vitamins as she has opted to breast-feed or at least attempt pump. She was otherwise to take [id number] analgesic pain medications as needed. Maternal blood type is A+ and rubella status is immune. Procedures: #1. Epidural analgesia #2. Normal spontaneous vaginal delivery Patient Condition at Discharge: Good Plan - Discharge Summary New Discharge Prescriptions: No Action Pnv,Calcium 72/Iron/Folic Acid [ Plus Tablet] 1 tab PO DAILY Discharge Medication List Pnv,Calcium 72/Iron/Folic Acid [ Plus Tablet] 1 tab PO DAILY 09/29/19 [History] Follow up Appointment(s)/Referral(s): Fallon Webster MD [Primary Care Provider] - 6 Weeks Discharge Disposition: HOME SELF-CARE
== END 2019-10-04 13:55 | disposition home or self-care (01) | DRG 806 ==
LOC: FBPOP 23:32 → 4FBP 23:50
PROVIDERS: ADMIT Obstetrics & Gynecology; ATTEND Obstetrics & Gynecology
PROC: 10E0XZZ Delivery of Products of Conception, External Approach (ICD-10-PCS; principal; 2019-10-03)
DX: O99.344 Other mental disorders complicating childbirth (principal); O99.354 Diseases of the nervous system complicating childbirth; Z37.0 Single live birth; O99.334 Smoking (tobacco) complicating childbirth; G40.909 Epilepsy, unspecified, not intractable, without status epilepticus; F41.9 Anxiety disorder, unspecified; F32.9 Major depressive disorder, single episode, unspecified; F17.210 Nicotine dependence, cigarettes, uncomplicated; Z3A.38 38 weeks gestation of pregnancy
CPT/HCPCS: 85025; 86850; 86900; 86901; 99213

== ENCOUNTER 2021-06-22 14:15 | Emergency (ER) | payer MEDICARE, OTHER ==
[2021-06-22 14:44] VITALS: BP 152/95; PULSE 104; RESP 20; TEMP 98.7
--- NOTE | 2021-06-22 15:11 | XR ---
EXAMINATION TYPE: XR foot complete RT DATE OF EXAM: 06/22/2021 CLINICAL HISTORY: Injury with pain TECHNIQUE: Frontal, lateral, and oblique images of the right foot are obtained. COMPARISON: None FINDINGS: There is no acute fracture/dislocation evident in the right foot. The joint spaces in the right foot appear within normal limits. Small accessory ossicle or unfused apophysis near lateral as pect of the cuboid bone. The overlying soft tissue appears unremarkable. IMPRESSION: There is no acute fracture or dislocation in the right foot.
--- NOTE | 2021-06-22 15:26 | XR ---
EXAMINATION TYPE: XR finger LT DATE OF EXAM: 06/22/2021 Comparison: 01/12/2017 TECHNIQUE: 3 views coned down left fifth digit. Clinical History: 35-year-old female who dropped on pinky finger injury, pain Findings: There is a dorsal intra-articular avulsion fracture from the distal phalangeal base with slight 1 mm of separation. Associated soft tissue swelling. No subluxation or dislocation. Impression: Intra-articular avulsion fracture dorsal aspect of the fifth distal phalangeal base mediated by the e xtensor tendon. Separation of 1 mm.
--- NOTE | 2021-06-22 15:46 | ED ---
Upper Extremity HPI - General Chief Complaint: Extremity Injury, Upper Stated Complaint: R Foot Injury Time Seen by Provider: 06/22/21 15:39 Source: patient, RN notes reviewed Mode of arrival: wheelchair Limitations: no limitations - History of Present Illness Initial Comments: 35-year-old female presents emergency Department chief complaint left and pinky finger injury, right foot pain. Patient states she called the bookshelf she also developed the vania and to her right foot. She primary complaint of left hand finger pain. No other injuries no chest pain or shortness breath no headache no dizziness. - Related Data Home Medications Medication Instructions Recorded Confirmed Pnv,Calcium 72/Iron/Folic Acid 1 tab PO DAILY 09/29/19 10/02/19 [ Plus Tablet] Allergies Allergy/AdvReac Type Severity Reaction Status Date / Time No Known Allergies Allergy Verified 06/22/21 14:40 Review of Systems ROS Statement: Those systems with pertinent positive or pertinent negative responses have been documented in the HPI. ROS Other: All systems not noted in ROS Statement are negative. Past Medical History Past Medical History: Seizure Disorder Additional Past Medical History / Comment(s): Last Seizure 6 yrs ago, DDD, fibromyalgia, Back pain History of Any Multi-Drug Resistant Organisms: None Reported, MRSA Date of last positivie culture/infection: 2013 MDRO Source:: cheek and abdomen abscess Past Surgical History: Tonsillectomy Additional Past Surgical History / Comment(s): PAIN CLINIC PROCEDURES. Past Anesthesia/Blood Transfusion Reactions: No Reported Reaction Past Psychological History: Anxiety, Depression Smoking Status: Current every day smoker Past Alcohol Use History: None Reported Past Drug Use History: Marijuana - Past Family History Mother Family Medical History: Deep Vein Thrombosis (DVT) Father History Unknown: Yes Family Medical History: No Reported History General Exam Limitations: no limitations General appearance: alert, in no apparent distress Head exam: Present: atraumatic, normocephalic, normal inspection Respiratory exam: Present: normal lung sounds bilaterally. Absent: respiratory distress, wheezes, rales, rhonchi, stridor Cardiovascular Exam: Present: regular rate, normal rhythm, normal heart sounds. Absent: systolic murmur, diastolic murmur, rubs, gallop, clicks Extremities exam: Present: other (Left hand fifth digit there is tenderness past the PIP to the distal tip neurovascular intact no iris deformity, right foot diffuse tenderness no ankle tenderness neurovascular intact) Course Vital Signs 06/22/21 14:40 Temperature 98.7 F Pulse Rate 104 H Respiratory 20 Rate Blood Pressure 152/95 O2 Sat by Pulse 98 Oximetry Medical Decision Making - Medical Decision Making X-ray shows evidence of fifth digit finger fracture splint was applied, x-ray of the foot is negative for acute medications right foot contusion discharged in stable condition return parameters were discussed. Disposition Clinical Impression: Fracture of distal phalanx of finger of left hand, Foot contusion Disposition: HOME SELF-CARE Condition: Stable Instructions (If sedation given, give patient instructions): Finger Fracture (ED) Additional Instructions: Please return to the Emergency Department if symptoms worsen or any other concerns. Is patient prescribed a controlled substance at d/c from ED?: No Referrals: Javi Espinal MD [Primary Care Provider] - 1-2 days Juan Diego Trevino DO [Doctor of Osteopathic Medicine] - 1-2 days Time of Disposition: 15:46
== END 2021-06-22 15:55 | disposition home or self-care (01) ==
LOC: EC 14:15
DX: S62.637A Displaced fracture of distal phalanx of left little finger, initial encounter for closed fracture (principal); F17.200 Nicotine dependence, unspecified, uncomplicated; S90.31XA Contusion of right foot, initial encounter; W23.0XXA Caught, crushed, jammed, or pinched between moving objects, initial encounter; Y93.89 Activity, other specified
CPT/HCPCS: 99283

== ENCOUNTER 2023-10-20 10:31 | Emergency (ER) | payer MEDICARE, OTHER ==
--- NOTE | 2023-10-20 10:56 | ED ---
Eye Problem HPI - General Chief complaint: Eye Problems Stated complaint: Both Eyes Patrick/Issues Time Seen by Provider: 10/20/23 10:35 Source: patient, RN notes reviewed Mode of arrival: ambulatory Limitations: no limitations - History of Present Illness Initial comments: 37-year-old female presents emergency department complaint of bilateral eye drainage, redness. Patient states that her daughter was diagnosed with salvador. Patient states she started symptoms last couple days. She states that she rubbed her left eye and states that there appears to be some blood in her sclera. She denies any visual disturbance denies fevers or chills no other complaints. - Related Data Home Medications Medication Instructions Recorded Confirmed Vit No.180/Iron/Folic 1 tab PO DAILY 09/29/19 10/02/19 [ Plus Vitamin-Mineral] Allergies Allergy/AdvReac Type Severity Reaction Status Date / Time No Known Allergies Allergy Verified 10/20/23 10:40 Review of Systems ROS Statement: Those systems with pertinent positive or pertinent negative responses have been documented in the HPI. ROS Other: All systems not noted in ROS Statement are negative. Past Medical History Past Medical History: Seizure Disorder Additional Past Medical History / Comment(s): Last Seizure 6 yrs ago, DDD, fibromyalgia, Back pain History of Any Multi-Drug Resistant Organisms: None Reported, MRSA Date of last positivie culture/infection: 2013 MDRO Source:: cheek and abdomen abscess Past Surgical History: Tonsillectomy Additional Past Surgical History / Comment(s): PAIN CLINIC PROCEDURES. Past Anesthesia/Blood Transfusion Reactions: No Reported Reaction Past Psychological History: Anxiety, Depression Smoking Status: Current every day smoker Past Alcohol Use History: None Reported Past Drug Use History: Marijuana - Past Family History Mother Family Medical History: Deep Vein Thrombosis (DVT) Father History Unknown: Yes Family Medical History: No Reported History General Exam Limitations: no limitations General appearance: alert, in no apparent distress Head exam: Present: atraumatic, normocephalic, normal inspection Eye exam: Present: PERRL, EOMI, conjunctival injection (Bilateral, subconjunctival hemorrhage left). Absent: normal appearance, scleral icterus, periorbital swelling ENT exam: Present: normal exam, mucous membranes moist Neck exam: Present: normal inspection, full ROM. Absent: tenderness, meningismu s, lymphadenopathy Respiratory exam: Present: normal lung sounds bilaterally. Absent: respiratory distress, wheezes, rales, rhonchi, stridor Cardiovascular Exam: Present: regular rate, normal rhythm, normal heart sounds. Absent: systolic murmur, diastolic murmur, rubs, gallop, clicks Course Vital Signs 10/20/23 10/20/23 10:37 11:07 Temperature 98 F 97.9 F Pulse Rate 95 92 Respiratory 18 20 Rate Blood Pressure 146/78 144/75 O2 Sat by Pulse 100 100 Oximetry Medical Decision Making - Medical Decision Making Was pt. sent in by a medical professional or institution (, [facility], DANCING MASTER, urgent care, hospital, or residential...) When possible be specific @ -No Did you speak to anyone other than the patient for history (EMS, parent, family, police, friend...)? What history was obtained from this source @ -No Did you review nursing and triage notes (agree or disagree)? Why? @ -I reviewed and agree with nursing and triage notes Were old charts reviewed (outside hosp., previous admission, EMS record, old EKG, old radiological studies, urgent care reports/EKG's, residential records)? Report findings @ -No old charts were reviewed Differential Diagnosis (chest pain, altered mental status, abdominal pain women, abdominal pain men, vaginal bleeding, weakness, fever, dyspnea, syncope, headache, dizziness, GI bleed, back pain, seizure, CVA, palpatations, mental health, musculoskeletal)? @ -Subconjunctival hemorrhage, conjunctivitis, hyphema EKG interpreted by me (3pts min.). @ -None X-rays interpreted by me (1pt min.). @ -None done CT interpreted by me (1pt min.). @ -None done U/S interpreted by me (1pt. min.). @ -None done What testing was considered but not performed or refused? (CT, X-rays, U/S, labs)? Why? @ -None What meds were considered but not given or refused? Why? @ -None Did you discuss the management of the patient with other professionals (professionals i.e. THERESA Foote, DANCING MASTER, lab, RT, psych nurse, social work specialist, lead tinner, teacher, security flex officer, case managers)? Give summary @ -No Was smoking cessation discussed for >3mins.? @ -No Was critical care preformed (if so, how long)? @ -No Were there social determinants of health that impacted care today? How? (Homelessness, low income, unemployed, alcoholism, drug addiction, transportation, low edu. Level, literacy, decrease access to med. care, long-term, rehab)? @ -No Was there de-escalation of care discussed even if they declined (Discuss DNR or withdrawal of care, Hospice)? DNR status @ -No What co-morbidities impacted this encounter? (DM, HTN, Smoking, COPD, CAD, Cancer, CVA, ARF, Chemo, Hep., AIDS, mental health diagnosis, sleep apnea, morbid obesity)? @ -None Was patient admitted / discharged? Hospital course, mention meds given and route, prescriptions, significant lab abnormalities, going to OR and other pertinent info. @ -Discharge patient has subconjunctival hide on the left with bilateral conjunctivitis. Patient started on Tobrex eyedrops patient will follow-up with ophthalmology, visual acuity within normal limits. Undiagnosed new problem with uncertain prognosis? @ -No Drug Therapy requiring intensive monitoring for toxicity (Heparin, Nitro, Insulin, Cardizem)? @ -No Were any procedures done? @ -No Diagnosis/symptom? @ -Subconjunctival hemorrhage, conjunctivitis Acute, or Chronic, or Acute on Chronic? @ -Acute Uncomplicated (without systemic symptoms) or Complicated (systemic symptoms)? @ -Uncomplicated Side effects of treatment? @ -No Exacerbation, Progression, or Severe Exacerbation? @ -No Poses a threat to life or bodily function? How? (Chest pain, [place], [place], pneumonia, PE, COPD, DKA, ARF, appy, cholecystitis, CVA, Diverticulitis, Homicidal, Suicidal, threat to staff... and all critical care pts) @ -No Disposition Clinical Impression: Bacterial conjunctivitis, Subconjunctival hemorrhage Disposition: HOME SELF-CARE Condition: Stable Instructions (If sedation given, give patient instructions): Conjunctivitis (ED) Additional Instructions: Please return to the Emergency Department if symptoms worsen or any other concerns. Use Tobrex eyedrops 1 drop every 4 hours for 7 days. Is patient prescribed a controlled substance at d/c from ED?: No Referrals: Javi Espinal MD [Primary Care Provider] - 1-2 days Time of Disposition: 10:56
[2023-10-20] MEDS: TOBRAMYCIN 0.3% OPHTH DROPS 5 ML BTL BOTH EYES STA (11:05)
[2023-10-20 11:31] VITALS: BP 144/75; PULSE 92; RESP 20; TEMP 97.9
== END 2023-10-20 11:17 | disposition home or self-care (01) ==
LOC: EC 10:31
DX: H11.33 Conjunctival hemorrhage, bilateral (principal); F12.90 Cannabis use, unspecified, uncomplicated; F17.200 Nicotine dependence, unspecified, uncomplicated; Z86.59 Personal history of other mental and behavioral disorders
CPT/HCPCS: 99282

== ENCOUNTER → 2024-12-24 | Outpatient (CLI) | payer MEDICARE ==
--- NOTE | 2024-12-24 07:21 | MR ---
EXAMINATION TYPE: MR lumbar spine wo con DATE OF EXAM: 12/24/2024 COMPARISON: MRI lumbar spine March 13, 2016 HISTORY: Lower back pain, LLE radiculopathy. TECHNIQUE: Multiplanar, multisequence imaging of the lumbar spine is performed without IV contrast. FINDINGS: Sagittal images of the lumbar spine show vertebral body heights to appear satisfactory. Sli ght scoliotic curvature or positioning is redemonstrated. The intervertebral discs demonstrate disc d esiccation at L4-L5 and L5-S1 level. There is persistent mild disc space narrowing at L4-L5 disc spac e and moderate to severe disc space narrowing at L5-S1 level with persistent heterogeneous Modic type II endplate changes now present. The conus medullaris is stable in position and signal ending superi or L2 level. Axial images show T12-L1 through L3-L4 levels to appear within normal limits. Axial images at L4-L5 level redemonstrated mild broad disc bulge minimally effacing the anterior thec al sac and causing mild bilateral anterior inferior neural foraminal narrowing. No significant change from prior. Axial images at L5-S1 level shows mild broad-based disc bulge with central disc protrusion. Spinal ca nal is preserved. There is mild facet arthropathy bilaterally. Bilateral neural foramina are patent. Findings improved from prior. IMPRESSION: Multilevel degenerative changes of lower lumbar spine is redemonstrated. Disc herniation L5-S1 level is improved from prior. [facility], , 12/24/2024 7:19 AM
== END | disposition home or self-care (01) ==
LOC: RADMRIMAIN 06:01
PROVIDERS: ATTEND Internal Medicine Geriatric Medicine
DX: M48.061 Spinal stenosis, lumbar region without neurogenic claudication (principal); M51.371 Other intervertebral disc degeneration, lumbosacral region with lower extremity pain only; M47.816 Spondylosis without myelopathy or radiculopathy, lumbar region
CPT/HCPCS: 72148

== ENCOUNTER 2025-02-16 17:32 | Emergency (ER) | payer MEDICARE, OTHER ==
[2025-02-16 17:39] VITALS: TEMP 98.2
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
[2025-02-16] MEDS: ACETAMINOPHEN TAB 500 MG TAB PO STA (18:10)
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
[2025-02-16 21:43] VITALS: BP 137/88; PULSE 65; RESP 16
== END 2025-02-16 21:50 | disposition home or self-care (01) ==
LOC: EC 17:32
DX: S33.5XXA Sprain of ligaments of lumbar spine, initial encounter (principal); F17.200 Nicotine dependence, unspecified, uncomplicated; V49.40XA Driver injured in collision with unspecified motor vehicles in traffic accident, initial encounter; Y92.410 Unspecified street and highway as the place of occurrence of the external cause
CPT/HCPCS: 70450; 71046; 72100; 72125; 99284